=== PATIENT | male | born 1950 | race Caucasian/White ===

== ENCOUNTER 2017-09-19 08:07 | Outpatient (CLI) | payer OTHER ==
--- NOTE | 2017-09-19 09:55 | US ---
Exam: Vlila-scale and color spectral Doppler ultrasonographic evaluation with waveform analysis of th e abdominal aorta and proximal iliac arteries. Comparison: None available. Reason for exam: AAA screen FINDINGS: The proximal portion of the aorta is not seen secondary to overlying bowel gas. The mid portion of the aorta measures 2.2 x 2.8 cm The distal aorta measures 1.5 x 2.0 cm The proximal right and left hip and not well seen secondary to overlying bowel gas. Impression: 1. No ultrasonographic evidence of aneurysmal dilatation is seen within the imaged portions of the a merle. 2. The proximal aorta, right iliac, and left iliac arteries are not well seen secondary to bowel gas
== END 2017-09-19 08:08 | disposition home or self-care (01) ==
LOC: RAD 08:07
PROVIDERS: ATTEND Family Medicine
DX: Z13.6 Encounter for screening for cardiovascular disorders (principal); Z87.891 Personal history of nicotine dependence
CPT/HCPCS: 76706

== ENCOUNTER 2017-09-19 09:16 | Outpatient (CLI) | payer OTHER | END 2017-09-19 09:17 | disposition home or self-care (01) | LOC: FCC-LAB 09:16 | PROVIDERS: ATTEND Family Medicine | DX: E03.9 Hypothyroidism, unspecified (principal); I10 Essential (primary) hypertension; E78.2 Mixed hyperlipidemia | CPT/HCPCS: 36415; 80053; 80061; 84439; 84443 ==

== ENCOUNTER 2017-11-27 14:03 | Outpatient (CLI) | END 2017-11-27 14:04 | disposition home or self-care (01) | LOC: CAR 14:03 | PROVIDERS: ATTEND Family Medicine | DX: Z00.00 Encounter for general adult medical examination without abnormal findings (principal); Z13.6 Encounter for screening for cardiovascular disorders | CPT/HCPCS: 93005; 93010 ==

== ENCOUNTER 2018-05-05 12:03 | Outpatient (CLI) | END 2018-05-05 12:04 | disposition home or self-care (01) | LOC: RHC-LAB 12:03 → FCC-LAB 12:04 | PROVIDERS: ATTEND Family Medicine | DX: E11.9 Type 2 diabetes mellitus without complications (principal); E03.9 Hypothyroidism, unspecified | CPT/HCPCS: 36415; 80053; 83037; 84443 ==